=== PATIENT | male | born 1950 | race African-American/Black ===

== ENCOUNTER 2021-01-01 05:14 | Emergency (ER) | payer OTHER ==
[~2021-01-01] VITALS: Ht 170.2 cm; Wt 81.8 kg
[2021-01-01] MEDS ORDERED: SODIUM CHLORIDE 0.9% 1,000 ML IV ONE (06:00)
[2021-01-01] MEDS ORDERED: KETOROLAC TROMETHAMINE 30 MG/ML VIAL IVP ONE (06:00)
[2021-01-01 06:14] VITALS: BP 154/97
== END 2021-01-01 06:51 | disposition home or self-care (01) ==
LOC: EMS 05:15
DX: N23 Unspecified renal colic (principal); E11.9 Type 2 diabetes mellitus without complications; E78.00 Pure hypercholesterolemia, unspecified; I10 Essential (primary) hypertension
CPT/HCPCS: 36415; 81002; 82962; 96361; 96374; 99283; J1885; J7030